=== PATIENT | male | born 1970 | race Two or more races ===

== ENCOUNTER 2023-05-21 11:34 | Inpatient (IN) | payer BC, OTHER ==
[~2023-05-21] VITALS: Ht 182.9 cm; Wt 122.8 kg
[2023-05-21 13:58] LABS: Chloride 100 mmol/L (98-107); Potassium 4.6 mmol/L (3.5-5.1); Sodium 132 mmol/L (136-145)
[2023-05-21 13:59] LABS: Anion Gap 4 (5-15); Calcium 8.9 mg/dL (8.5-10.1); Carbon Dioxide 28 mmol/L (20-30)
[2023-05-21 14:04] LABS: BUN/Creatinine Ratio 7.1 (10.0-20.0); Blood Urea Nitrogen 10 mg/dL (9-23); Glucose 108 mg/dL (74-106)
[2023-05-21 14:25] LABS: Basophils # (auto) 0 10 ^3/uL (0-0.2); Lymphocytes # (auto) 1.7 10 ^3/uL (0.4-5.4); Monocytes # (auto) 1.1 10 ^3/uL (0-1.3)
[2023-05-21 14:26] LABS: Basophils % (auto) 0.4 % (0.0-2.0); Eosinophils # (auto) 0.1 10 ^3/uL (0-0.8); Eosinophils % (auto) 0.6 % (0.0-7.0); Hemoglobin 18.9 g/dL (13.5-17.5); Lymphocytes % (auto) 17.9 % (10.0-50.0); Mean Corpuscular Hemoglobin 30.7 pg (28.0-32.0); Mean Corpuscular Hgb Conc. 33.4 g/dL (32.0-36.0); Monocytes % (auto) 11.8 % (0.0-12.0); Neutrophils # (auto) 6.5 10 ^3/uL (1.6-8.6); Neutrophils % (auto) 69.3 % (37.0-80.0); Nucleated Red Blood Cells % 0.2 %; Red Blood Cells 6.14 10^6/uL (4.5-5.90); White Blood Cell 9.4 10^3/uL (4.4-10.8)
[2023-05-21 14:34] LABS: Hematocrit 56.5 % (41.0-53.0)
[2023-05-21] MEDS: cefTRIAXone 1GM/50ML D5W 50 ML IV ONE (14:50)
[2023-05-21] MEDS: KETOROLAC TROMETH 30 MG/ML 1ML VIAL IV ONE (14:50)
[2023-05-21] MEDS: CLINDAMYCIN 900MG IV 50 ML IV ONE (14:50)
[2023-05-21] MEDS: DOXYCYCLINE 100MG/250ML 250 ML IV SCH (16:45)
[2023-05-21] MEDS ORDERED: MORPHINE SULFATE INJ 2 MG/ml SYRG IV PRN (16:45)
[2023-05-21] MEDS ORDERED: ACYCLOVIR SOD 50MG/ML 500 MG in D5W 5% 100 ML IV ONE (16:45)
[2023-05-21] MEDS ORDERED: ONDANSETRON HCL 4 MG/2 ML VIAL IV PRN (16:45)
[2023-05-21] MEDS: SODIUM CHLORIDE 0.9% 2,000 ML IV ONE (16:45)
[2023-05-21] MEDS ORDERED: DOCUSATE SOD 100 MG CAP PO PRN (16:45)
[2023-05-21 17:42] VITALS: PULSE 123; RESP 19; O2SAT 99
[2023-05-21] MEDS: SODIUM CHLORIDE 0.9% 1,000 ML IV SCH (18:45)
[2023-05-21 18:48] VITALS: PULSE 106; RESP 16; O2SAT 95
[2023-05-21 20:00] VITALS: BP 136/88; PULSE 85; RESP 18; TEMP 98.2; O2SAT 97
[2023-05-21] MEDS: ACYCLOVIR SOD 50MG/ML 750 MG in SODIUM CHL 0.9% 250 ML IV SCH (20:12)
[2023-05-21] MEDS: EUCERIN CREAM 2OZ TUBE TOP SCH (20:15)
[2023-05-21 22:00] VITALS: BP 136/88; PULSE 85; RESP 18; TEMP 98.2; O2SAT 97
[2023-05-21] MEDS ORDERED: ACYCLOVIR SOD 50MG/ML 500 MG in D5W 5% 100 ML IV SCH (22:00)
[2023-05-22] VITALS (7 sets, daily range): BP systolic 133–147; BP diastolic 83–97; PULSE 61–112; RESP 18–21; TEMP 98–98.9; O2SAT 96–99
[2023-05-22] MEDS ORDERED: ACYCLOVIR SOD 50MG/ML 750 MG in SODIUM CHL 0.9% 250 ML IV SCH (04:00)
[2023-05-22] MEDS: ACYCLOVIR SOD 50MG/ML 750 MG in SODIUM CHL 0.9% 250 ML IV SCH (04:02)
[2023-05-22 05:45] LABS: Basophils # (auto) 0.1 10 ^3/uL (0-0.2); Basophils % (auto) 1.2 % (0.0-2.0); Eosinophils # (auto) 0.1 10 ^3/uL (0-0.8); Eosinophils % (auto) 1.5 % (0.0-7.0); Hematocrit 49.8 % (41.0-53.0); Hemoglobin 17.2 g/dL (13.5-17.5); Mean Corpuscular Hemoglobin 31.5 pg (28.0-32.0); Mean Corpuscular Hgb Conc. 34.6 g/dL (32.0-36.0); Mean Corpuscular Volume 91.1 fL (80.0-100.0); Monocytes # (auto) 1.1 10 ^3/uL (0-1.3); Monocytes % (auto) 14.3 % (0.0-12.0); Neutrophils # (auto) 4.3 10 ^3/uL (1.6-8.6); Nucleated Red Blood Cells % 0.2 %; Red Blood Cells 5.47 10^6/uL (4.5-5.90); Red Cell Distribution Width 13.7 % (11.8-14.3); White Blood Cell 7.6 10^3/uL (4.4-10.8)
[2023-05-22 06:05] LABS: Alanine Aminotransferase 24 U/L (7-40); Albumin 3.8 g/dL (3.2-4.8); Alkaline Phosphatase 82 U/L (46-116); Anion Gap 7 (5-15); Aspartate Aminotransferase 18 U/L (13-40); BUN/Creatinine Ratio 12.1 (10.0-20.0); Bilirubin, Total 1.1 mg/dL (0.2-1.0); Blood Urea Nitrogen 17 mg/dL (9-23); Calcium 8.8 mg/dL (8.7-10.4); Carbon Dioxide 26 mmol/L (20-30); Chloride 103 mmol/L (98-107); Glucose 97 mg/dL (74-106); Sodium 136 mmol/L (136-145)
[2023-05-22 10:52] LABS: Creatinine, Urine 356.91 mg/dL (30.0-125.0)
[2023-05-22] MEDS ORDERED: APIX5TAB PO (14:46)
[2023-05-22] MEDS: ACYCLOVIR 400 MG TAB PO SCH (17:38)
[2023-05-23 05:05] VITALS: BP 105/37; PULSE 114; RESP 18; TEMP 98.2; O2SAT 98
[2023-05-23 08:00] VITALS: PULSE 77; RESP 16; O2SAT 98
[2023-05-23] MEDS ORDERED: ACYC400T16 PO (08:36)
[2023-05-23 08:56] VITALS: BP 150/97; PULSE 77; RESP 16; TEMP 97.6; O2SAT 98
[2023-05-23 09:34] VITALS: BP 150/97; PULSE 77; RESP 16; TEMP 97.6; O2SAT 98
== END 2023-05-23 10:00 | disposition home or self-care (01) | DRG 866 ==
LOC: ER 11:34 → EAST 15:07 → OVERFLOW 16:57 → EAST 19:04
PROVIDERS: ADMIT Nurse Practitioner Family; ATTEND Nurse Practitioner Family
DX: B02.8 Zoster with other complications (principal); L03.211 Cellulitis of face; N17.9 Acute kidney failure, unspecified; E87.1 Hypo-osmolality and hyponatremia
CPT/HCPCS: 36415; 80048; 80053; 82570; 83605; 84300; 85025; 87040; 87086; 87205; G0378; J1885; J3490